=== PATIENT | male | born 1960 | race Caucasian/White ===

== ENCOUNTER 2018-02-07 16:29 | Emergency (ER) | payer SELFPAY ==
[2018-02-07] MEDS ORDERED: cefTRIAXone(*) 1 GM in NS 0.9% 50 ML* 50 ML IVPB ONE (17:17)
[2018-02-07] MEDS ORDERED: Lidocaine 2% 10 ML* VIAL INJ ONE (17:17)
[2018-02-07] MEDS ORDERED: cefTRIAXone VIAL(*) 1,000 MG VIAL IM ONE (17:21)
[2018-02-07] MEDS ORDERED: Lidocaine 2% PF * 5 ML VIAL ONE (17:24)
--- NOTE | 2018-02-07 17:33 | ED ---
Bite Injury/Animal - HPI Summary HPI Summary: Patient is a 58-year-old male presenting to the ED [facility] with a concern over left middle assaultive fingers injury from a dog bite which occurred 6 days ago. He states he was seen today due to some erythema around the area. However the swelling has reduced. He was sent here for IV antibiotics. He denies any fevers, sweats, chills. Good range of motion to the MCP and PIP with minimal range of motion to the DIP. There is a small amount of tissue from the dorsum of the left middle finger. He denies any known allergies, is otherwise healthy and takes no medications. - History of Current Complaint Chief Complaint: EDExtremityUpper Stated Complaint: POSS INFECTION/FINGER LAC Time Seen by Provider: 02/07/18 17:05 Hx Obtained From: Patient Onset of Injury: Happened days ago Type of Bite: Pet Hx of Bite: Provoked by: Has Animal Been Immunized?: Yes Severity Initially: Moderate Severity Currently: Mild Pain Intensity: 0 Pain Scale Used: 0-10 Numeric Character: Puncture Alleviating Factor(s): Rest Associated Signs And Symptoms: Positive: Erythema, Drainage, Swelling Animal Available for Observation: Yes Animal Control Notified: No - Risk Factors Infection/Sepsis Risk Factors: Negative - Allergies/Home Medications Allergies/Adverse Reactions: Allergies Allergy/AdvReac Type Severity Reaction Status Date / Time No Known Allergies Allergy Verified 02/07/18 16:38 PMH/Surg Hx/FS Hx/Imm Hx Previously Healthy: Yes Endocrine/Hematology History: Denies: Hx Diabetes, Hx Thyroid Disease Cardiovascular History: Denies: Hx Hypertension Respiratory History: Denies: Hx Asthma, Hx Chronic Obstructive Pulmonary Disease (COPD) GI History: Denies: Hx Ulcer - Immunization History Hx Pertussis Vaccination: No Immunizations Up to Date: Yes Infectious Disease History: No Infectious Disease History: Denies: Hx Hepatitis, Hx Human Immunodeficiency Virus (HIV), Traveled Outside the [place] in Last 30 Days - Social History Occupation: Employed Full-time Lives: With Family Alcohol Use: Occasionally Hx Substance Use: No Substance Use Type: Reports: None Hx Tobacco Use: No Smoking Status (MU): Never Smoked Tobacco Review of Systems Constitutional: Negative Cardiovascular: Negative Respiratory: Negative Musculoskeletal: Negative Positive: Other - see course of treatment Neurological: Negative Psychological: Normal All Other Systems Reviewed And Are Negative: Yes Physical Exam Triage Information Reviewed: Yes Vital Signs On Initial Exam: Initial Vitals Temp Pulse Resp BP Pulse Ox 98.6 F 81 20 168/84 100 02/07/18 16:31 02/07/18 16:31 02/07/18 16:31 02/07/18 16:31 02/07/18 16:31 Vital Signs Reviewed: Yes Appearance: Positive: Well-Appearing, Well-Nourished Skin: Positive: Warm, Skin Color Reflects Adequate Perfusion - 2 small .7cm lacerations to the dorsum and palmar side of the distal tip of the finger Neck: Positive: Supple, No Lymphadenopathy Respiratory/Lung Sounds: Positive: Clear to Auscultation Cardiovascular: Positive: RRR, Pulses are Symmetrical in both Upper and Lower Extremities Musculoskeletal: Positive: Normal, Other - slightly limited ROM at the DIP Neurological: Positive: Speech Normal Psychiatric: Positive: Normal, Affect/Mood Appropriate Diagnostics - Vital Signs Vital Signs Temp Pulse Resp BP Pulse Ox 02/07/18 16:31 98.6 F 81 20 168/84 100 - Laboratory Lab Statement: Any lab studies that have been ordered have been reviewed, and results considered in the medical decision making process. Bite Injury Course/Dx - Course Course Of Treatment: During the course treatment, the patient was concerned over a life-threatening illness, and sent from [address] [place] [address] urgent care. On arrival , appears to be 2 small lacerations one to the dorsum of the distal tip of the finger without involvement of the nail and the other to the palmar side of the distal tip of the finger both measuring approximately 7 cm in length. Small amount of tissue from each area is protruding. He continues to remain able to bend at the MCP and PIP joint with minimal range of motion to the DIP. There is no evidence of a spreading cellulitis or lymphangitis, however there is a localized infection. There appears to be a partial paronychia, however there is an overlying partial laceration with adequate drainage of purulent material and no I and D must be made. He states the area has improved in swelling over the past 2 days, however the erythema has gotten worse. I have discussed obtaining an x-ray of the area to assess for a crush injury, however he declines this as he is self-pay. The area was thoroughly cleansed with chlorhexidine, and antibiotic ointment and gauze wrapped. He will be discharged home with Augmentin for Pasteurella coverage as well as given 1 g ceftriaxone in the ED. I've given him very strict return precautions, however I am not concerned over a tenosynovitis d/t no swelling or restriction of movement of the dorsum or the palmar side of the hand, there is also no fusiform swelling of the digit. I am not concerned at this time for a lymphangitis as there is no streaking up the arm and no epitrochlear or axilarry nodules present. He understands return precautions and voices no concerns. - Diagnoses Differential Diagnosis/HQI/PQRI: Positive: Cellulitis, Crush Injury Provider Diagnosis: Dog bite Discharge - Sign-Out/Discharge Documenting (check all that apply): Patient Departure - Discharge Plan Condition: Stable Disposition: HOME Prescriptions: Amoxicillin/Clavulanate TAB* [Augmentin TAB 875*] 875 mg PO BID #14 tab Referrals: No Primary Care Phys,NOPCP [Primary Care Provider] - Additional Instructions: If you develop fevers, sweats, chills, return to the ED immediately If the area becomes more swollen, red, or you develop streaking up the arm, return to the ED immediately. Also if you develop any swelling or redness on either side of the hand, you must return Keflex 4 times daily 7 days Continue to soak in warm water - Billing Disposition and Condition Condition: STABLE Disposition: Home
[2018-02-07 17:43] VITALS: BP 125/63
== END 2018-02-07 17:43 | disposition home or self-care (01) ==
LOC: ED 16:29
DX: S61.253A Open bite of left middle finger without damage to nail, initial encounter (principal); W54.0XXA Bitten by dog, initial encounter; Y92.9 Unspecified place or not applicable
CPT/HCPCS: 96372; 96374; 99282; J0696

== ENCOUNTER → 2018-03-01 06:27 | Day surgery (SDC) | payer SELFPAY ==
--- NOTE | 2018-03-01 03:35 | HP ---
PREOPERATIVE HISTORY AND PHYSICAL: DATE OF SURGERY/ADMISSION: 03/01/18 DATE OF OFFICE VISIT/ENCOUNTER: 02/28/18 ATTENDING SURGEON: Katie Foster MD * (DICTATED BY TYREE CHAPNI) PROCEDURE: Left long finger incision and drainage. CHIEF COMPLAINT: Dog bite to left long finger. HISTORY OF PRESENT ILLNESS: This is a 58-year-old male who was bitten by one of his dogs about 3 weeks ago on his left middle finger. He reports that it was a dorsal puncture wound and a volar puncture as well. He was seen at [facility] 5 days later because the finger had become swollen and painful. He was put on 7 days of Keflex. He had continued symptoms, so was subsequently followed up by Dr. Be at [facility] and was placed on 2 different antibiotics, doxycycline and metronidazole. He is currently taking these. He continues to have a problem with the finger in terms of pain and loss of motion at the DIP joint. He also has a nonhealing wound on the volar aspect of the finger. He has not been able to work because of this problem, otherwise he is healthy. X-rays show evidence of osteomyelitis. The patient has consented to proceed with surgical intervention at this time in the form of a left long finger incision and drainage. Cultures will be taken. PAST MEDICAL HISTORY: Unremarkable. PAST SURGICAL HISTORY: None. MEDICATIONS: None. ALLERGIES: No known drug allergies. FAMILY MEDICAL HISTORY: Noncontributory. SOCIAL HISTORY: The patient owns rental property. He is a former smoker, he quit in 2003. Prior to that, he smoked a pack per day for 20 years. He reports on rare occasions smoking marijuana. Drinks alcohol on occasion. REVIEW OF SYSTEMS: Negative for general, cephalic, cardiovascular, respiratory , GI, , other musculoskeletal, integumentary, endocrine, neurologic, and hematologic symptoms. Infectious disease is negative for MRSA and hepatitis C, and HIV. No known anesthesia problems. PHYSICAL EXAMINATION GENERAL: Well-developed, well-nourished 58-year-old male, in no acute distress. VITAL SIGNS: Height 6 feet tall, weight 194 pounds. Pulse rate 84, blood pressure 134/86. HEENT: Normocephalic, atraumatic. Pupils are equal, round, and reactive to light and accommodation. Extraocular movements are intact. Throat is clear. NECK: Supple. No palpable lymph nodes. PULMONARY: Lungs are clear to auscultation bilaterally. No wheezes, rales, or rhonchi. CARDIOVASCULAR: Regular rate and rhythm. S1, S2. No murmurs, rubs, or gallops. No edema. ABDOMEN: Positive bowel sounds, soft, nontender. NEUROLOGICAL: Alert and oriented x3. Cranial nerves II through XII are intact. Sensation is intact to light touch. MUSCULOSKELETAL: On exam of the left middle finger, he has a moderate amount of swelling and slight erythema around the DIP joint. It is tender to palpation. He has a pyogenic granuloma on the volar aspect of the finger at the DIP flexion crease. He has limited flexion available at the DIP joint, good flexion at the PIP. There is no purulent drainage. Fingernail was intact. IMAGING STUDIES: X-rays, AP lateral and oblique of the left middle finger show osteomyelitis of the distal phalanx. ASSESSMENT: Left middle finger dog bite with osteomyelitis. PLAN: The patient is scheduled to undergo a left long finger incision and drainage with Dr. Foster on 03/01/18. He will return to the office 10 days postop for followup. A prescription for Ultracet was e-scribed to the patient' s pharmacy for postoperative pain management. TYREE CHAPIN [id number]/[facility] #: [id number] MTDD
[~2018-03-01 06:27] MED LIST: Acetaminophen TAB* 325 MG PO PRN; HYDROcodone/ACETAMIN 5-325 MG* 1 TAB PO PRN; Lidocaine 1% INJ* 10 MG/ML 30 ML SDV ONE; Lidocaine 1%* 5 ML VIAL ONE; Midazolam* 1 MG/ML 5 ML VIAL (5 MG) ONE; Naloxone* 0.4 MG/ML 1 ML VIAL IV PRN; Ondansetron INJ* 2 MG/ML VIAL IV PRN; Propofol* 10 MG/ML 20 ML BTL IV PUSH ONE; fentaNYL* 50 MCG/ML 2 ML VIAL (100 MCG VIAL) IV PRN; fentaNYL* 50 MCG/ML 2 ML VIAL (100 MCG VIAL) ONE
[2018-03-01 08:17] VITALS: BP 110/78
--- NOTE | 2018-03-01 22:43 | OP ---
DATE OF OPERATION: 03/01/18 [facility] DATE OF : 62. SURGEON: Katie Foster MD. SPORTS COMMENTATOR: TYREE Rodriguez. ANESTHESIA: Local MAC. PRE-OP DIAGNOSIS: Osteomyelitis of the left long finger distal phalanx. POST-OP DIAGNOSIS: Osteomyelitis of the left long finger distal phalanx. OPERATIVE PROCEDURE: Incision and drainage left index finger. ESTIMATED BLOOD LOSS: Zero. TOURNIQUET TIME: About 15 minutes. INDICATIONS FOR PROCEDURE: Hilton is a 58-year-old man who got bit by a dog about 3 weeks ago. He has persistent swelling, redness, and a pyogenic granuloma at the volar puncture site and his x-ray shows osteomyelitis of the distal phalanx. He presents for I and D of the left middle finger. DESCRIPTION OF PROCEDURE: The patient was brought to the operating room, was given a sedation anesthetic and a digital block of 10 cc of 1% plain lidocaine. The skin of the left hand and forearm was prepped and draped in the usual sterile fashion. The finger was exsanguinated with a tourniquet. An elliptical incision was made around the pyogenic granuloma and it was sent for pathology. We then sent cultures and bone cultures, each in separate tubes and curetted out all of the necrotic bone. The wound was copiously irrigated then with 2 L of saline and loosely closed with 4-0 nylon suture. The wound was dressed with Xeroform, 4x4, Webril, and Coban. The patient tolerated the procedure well and was brought to the recovery room in good condition. [id number]/[facility] #: [id number] [facility]ENTER[facility]em
== END | disposition home or self-care (01) ==
LOC: OREAST 06:27
PROVIDERS: ATTEND Orthopaedic Surgery
DX: M86.142 Other acute osteomyelitis, left hand (principal); Z87.891 Personal history of nicotine dependence; L03.012 Cellulitis of left finger
CPT/HCPCS: 87070; 87073; 87205; 88305; J2250; J2704; J3010